=== PATIENT | female | born 1950 | race Caucasian/White ===

== ENCOUNTER → 2016-10-26 | Outpatient (CLI) | payer MEDICARE, MEDICAID ==
[~2016-10-26] MED LIST: ASPIRIN E.C. 8181 MG PO; CARAFATE 1GM1 G PO; COLACE 100100 MG/CAP PO; DEPAKOTE 250MG250 MG PO; DEPAKOTE500 MG PO; IMODIUM A-D2 MG PO; K-DUR20 MEQ PO; KLONOPIN 1MG1 MG PO; METAMUCIL3.4 GM/DOS PO; MIRALAX PA17 GM/Dose PO; NORCO 325 MG-7.1 TAB PO; NORVASC 5MG5 MG/TAB PO; PRIL40 PO; PROBIOTIC GOLD1 EACH PO; REMERON 15M15 MG/TA1 PO; REQUIP 1MG T1 MG/TAB PO; RESTORIL30 MG PO; SEROQUEL 200MG200 MG PO; SINEMET CR1 UDTAB.S1 PO; ZOFRAN 4MG T4 MG/TAB PO; ZOLOFT 100MG100 MG PO
[2016-10-26 16:36] LABS: PH 6 (5-8); SQUAMOUS EPITHELIAL 0-2 /hpf; URINE APPEARANCE Clear; URINE BACTERIA Rare /hpf; URINE BILIRUBIN Negative (NEGATIVE); URINE BLOOD 1+ (NEGATIVE); URINE COLOR Yellow; URINE GLUCOSE Negative (NEGATIVE); URINE KETONE Negative (NEGATIVE); URINE RBC 0-2 /hpf; URINE UROBILINOGEN Negative (NEGATIVE)
== END ==
LOC: ZCOL.LAB 14:47
DX: Z87.440 Personal history of urinary (tract) infections (principal)

== ENCOUNTER → 2016-11-30 | Outpatient (CLI) | payer MEDICARE, MEDICAID ==
[2016-11-30 13:30] LABS: TOTAL IRON BINDING CAPACITY 346 ug/dL (265-497)
[2016-11-30 13:56] LABS: FERRITIN 21 ng/mL (11-264)
== END ==
LOC: ZCOL.LAB 12:15
PROVIDERS: Internal Medicine
DX: R79.89 Other specified abnormal findings of blood chemistry (principal); Z02.89 Encounter for other administrative examinations

== ENCOUNTER → 2016-12-03 | Outpatient (CLI) | payer MEDICARE, MEDICAID ==
[2016-12-03 13:24] LABS: BASO # 0.1 (0.0-0.2); BASO % 0.7 % (0.0-2.0); EOS # 0.1 (0.0-0.7); EOS % 1.5 % (0-4.0); GRAN # 4.4 (1.4-6.5); HEMATOCRIT 37.6 % (37.0-47.0); LYMPH # 1.7 (1.2-3.4); LYMPH % 25.4 % (20.0-51.0); MEAN CELL VOLUME 86 fl (80.0-100.0); MEAN CORPUSCULAR HEMOGLOBIN 30 pg (27.0-31.0); MEAN CORPUSCULAR HGB CONC 35 g/dl (33.0-37.0); MEAN PLATELET VOLUME 10.5 fl (7.4-10.4); MONO # 0.6 (0.1-0.6); MONO % 8.3 % (1.7-9.3); PLATELET COUNT 283 K/mm3 (130-400); RED BLOOD COUNT 4.39 M/mm3 (4.10-5.30); REDCELL DISTRIBUTION WIDTH-CV 12.1 % (11.5-14.5); WHITE BLOOD COUNT 6.9 K/mm3 (4.8-10.8)
[2016-12-03 13:32] LABS: ADJUSTED CALCIUM 9.7 mg/dL (8.4-10.2); ALBUMIN 4.4 gm/dL (3.5-5.0); BILIRUBIN,TOTAL 0.7 mg/dL (0.0-1.0); CREATININE, serum 1.06 mg/dL (0.52-1.25); POTASSIUM 4.3 mmol/L (3.4-5.0)
[2016-12-03 14:02] LABS: THYROID STIMULATING HORMONE 1.38 uIU/mL (0.465-4.680)
== END ==
LOC: ZCOL.LAB 09:41
PROVIDERS: Internal Medicine
DX: I10 Essential (primary) hypertension (principal); Z02.89 Encounter for other administrative examinations

== ENCOUNTER → 2017-01-09 | Outpatient (CLI) | payer MEDICAID, MEDICARE | LOC: BHSO 10:41 | DX: F41.0 Panic disorder [episodic paroxysmal anxiety] (principal) | CPT/HCPCS: 90791-AI ==

== ENCOUNTER → 2017-01-17 | Outpatient (REF) ==
[2017-01-17 18:46] LABS: PH 6 (5-8); SQUAMOUS EPITHELIAL 0-2 /hpf; URINE APPEARANCE Clear; URINE BACTERIA None Seen /hpf; URINE BILIRUBIN Negative (NEGATIVE); URINE BLOOD Negative (NEGATIVE); URINE COLOR Straw; URINE GLUCOSE Negative (NEGATIVE); URINE KETONE Negative (NEGATIVE); URINE RBC 0-2 /hpf; URINE UROBILINOGEN Negative (NEGATIVE); URINE WBC 0-2 /hpf
== END ==
LOC: ZCOL.LAB 18:36
PROVIDERS: Internal Medicine
DX: Z01.89 Encounter for other specified special examinations (principal)

== ENCOUNTER → 2017-02-14 | Outpatient (CLI) | payer MEDICARE, MEDICAID | LOC: BHSO 10:10 | DX: F41.1 Generalized anxiety disorder (principal) ==

== ENCOUNTER → 2017-03-04 | Outpatient (CLI) | payer MEDICARE, MEDICAID ==
[2017-03-04 17:30] LABS: CALCIUM 9.2 mg/dL (8.4-10.2); CREATININE, serum 0.87 mg/dL (0.52-1.25); POTASSIUM 4.2 mmol/L (3.4-5.0)
== END ==
LOC: ZCOL.LAB 16:39
PROVIDERS: Internal Medicine
DX: I10 Essential (primary) hypertension (principal)

== ENCOUNTER → 2017-04-10 | Outpatient (CLI) | payer MEDICARE, MEDICAID ==
[2017-04-10 22:17] LABS: BASO % 0.7 % (0.0-2.0); EOS # 0.1 (0.0-0.7); EOS % 2.9 % (0-4.0); GRAN # 2.1 (1.4-6.5); GRAN % 50.7 % (42.2-75.2); HEMATOCRIT 30.7 % (37.0-47.0); HEMOGLOBIN 10.7 g/dl (12.5-16.0); LYMPH # 1.3 (1.2-3.4); LYMPH % 30.7 % (20.0-51.0); MEAN CELL VOLUME 83 fl (80.0-100.0); MEAN CORPUSCULAR HEMOGLOBIN 29 pg (27.0-31.0); MEAN CORPUSCULAR HGB CONC 35 g/dl (33.0-37.0); MEAN PLATELET VOLUME 9.6 fl (7.4-10.4); MONO # 0.6 (0.1-0.6); MONO % 14.8 % (1.7-9.3); PLATELET COUNT 257 K/mm3 (130-400); RED BLOOD COUNT 3.69 M/mm3 (4.10-5.30); REDCELL DISTRIBUTION WIDTH-CV 13.2 % (11.5-14.5); WHITE BLOOD COUNT 4.1 K/mm3 (4.8-10.8)
[2017-04-10 22:59] LABS: ADJUSTED CALCIUM 9.2 mg/dL (8.4-10.2); ALBUMIN 3.9 gm/dL (3.5-5.0); BILIRUBIN,TOTAL 0.4 mg/dL (0.0-1.0); CALCIUM 9.1 mg/dL (8.4-10.2); CREATININE, serum 0.87 mg/dL (0.52-1.25); POTASSIUM 4.7 mmol/L (3.4-5.0); TOTAL PROTEIN 6.4 gm/dL (6.4-8.2)
== END ==
LOC: ZCOL.LAB 16:40
PROVIDERS: Internal Medicine
DX: K56.69 Other intestinal obstruction (principal); R11.2 Nausea with vomiting, unspecified

== ENCOUNTER 2017-04-15 12:38 | Emergency (ER) | payer MEDICARE, MEDICAID ==
[~2017-04-15] VITALS: Ht 160 cm; Wt 48.3 kg
[2017-04-15 14:01] LABS: ADJUSTED CALCIUM 8.7 mg/dL (8.4-10.2); ALBUMIN 4.1 gm/dL (3.5-5.0); BILIRUBIN,TOTAL 0.5 mg/dL (0.0-1.0); C-REACTIVE PROTEIN 1.2 mg/dL (0.0-0.9); CALCIUM 8.8 mg/dL (8.4-10.2); CREATININE, serum 0.93 mg/dL (0.52-1.25); POTASSIUM 4.8 mmol/L (3.4-5.0); TOTAL PROTEIN 7.2 gm/dL (6.4-8.2)
[2017-04-15 14:08] LABS: BASO % 0.4 % (0.0-2.0); EOS # 0.1 (0.0-0.7); EOS % 2.2 % (0-4.0); GRAN # 3.5 (1.4-6.5); GRAN % 64.6 % (42.2-75.2); LYMPH # 1.2 (1.2-3.4); LYMPH % 21.6 % (20.0-51.0); MEAN CELL VOLUME 85 fl (80.0-100.0); MEAN CORPUSCULAR HGB CONC 34 g/dl (33.0-37.0); MEAN PLATELET VOLUME 9.5 fl (7.4-10.4); MONO # 0.6 (0.1-0.6); MONO % 10.8 % (1.7-9.3); PLATELET COUNT 251 K/mm3 (130-400); RED BLOOD COUNT 3.76 M/mm3 (4.10-5.30); REDCELL DISTRIBUTION WIDTH-CV 13.2 % (11.5-14.5); WHITE BLOOD COUNT 5.5 K/mm3 (4.8-10.8)
[2017-04-15 14:09] LABS: HEMATOCRIT 31.8 % (37.0-47.0); HEMOGLOBIN 10.8 g/dl (12.5-16.0); MEAN CORPUSCULAR HEMOGLOBIN 29 pg (27.0-31.0)
[2017-04-15] MEDS ORDERED: NORVASC 5MG5 MG/TAB PO (15:19)
[2017-04-15] MEDS ORDERED: METAMUCIL3.4 GM/DOS PO (15:22)
[2017-04-15] MEDS ORDERED: SINEMET CR1 UDTAB.S1 PO (15:24)
[2017-04-15] MEDS ORDERED: K-DUR20 MEQ PO (15:25)
[2017-04-15] MEDS ORDERED: RESTORIL30 MG PO (15:26)
[2017-04-15] MEDS ORDERED: REMERON 15M15 MG/TA1 PO (15:29)
[2017-04-15] MEDS ORDERED: CARAFATE 1GM1 G PO ×2 (15:29→15:30)
[2017-04-15] MEDS ORDERED: KLONOPIN 1MG1 MG PO (15:32)
[2017-04-15] MEDS ORDERED: ZOLOFT 100MG100 MG PO (15:33)
[2017-04-15] MEDS ORDERED: SEROQUEL 200MG200 MG PO (15:34)
[2017-04-15] MEDS ORDERED: PRIL40 PO (15:34)
[2017-04-15] MEDS ORDERED: PROBIOTIC GOLD1 EACH PO (15:37)
[2017-04-15] MEDS ORDERED: ASPIRIN E.C. 8181 MG PO (15:38)
[2017-04-15] MEDS ORDERED: COLACE 100100 MG/CAP PO (15:38)
[2017-04-15] MEDS ORDERED: REQUIP 1MG T1 MG/TAB PO (15:39)
[2017-04-15] MEDS ORDERED: DEPAKOTE500 MG PO (15:40)
[2017-04-15] MEDS ORDERED: DEPAKOTE 250MG250 MG PO (15:40)
[2017-04-15] MEDS ORDERED: IMODIUM A-D2 MG PO (15:50)
[2017-04-15] MEDS ORDERED: MIRALAX PA17 GM/Dose PO (15:51)
[2017-04-15] MEDS ORDERED: NORCO 325 MG-7.1 TAB PO (15:52)
[2017-04-15] MEDS ORDERED: ZOFRAN 4MG T4 MG/TAB PO (15:54)
[2017-04-15 15:55] VITALS: BP 101/55; PULSE 80; TEMP 98.1
== END 2017-04-15 15:46 | disposition home or self-care (01) ==
LOC: COL.ER 12:38
PROVIDERS: Family Medicine
DX: E87.1 Hypo-osmolality and hyponatremia (principal); E86.0 Dehydration; R63.0 Anorexia; I10 Essential (primary) hypertension; F20.9 Schizophrenia, unspecified; Z79.82 Long term (current) use of aspirin
CPT/HCPCS: J2405; J7030

== ENCOUNTER → 2017-04-19 | Outpatient (CLI) | payer MEDICARE, MEDICAID ==
[2017-04-19 15:21] LABS: PH 7 (5-8); SQUAMOUS EPITHELIAL 0-2 /hpf; URINE APPEARANCE Hazy; URINE BACTERIA Rare /hpf; URINE BILIRUBIN Negative (NEGATIVE); URINE BLOOD Negative (NEGATIVE); URINE COLOR Yellow; URINE GLUCOSE Negative (NEGATIVE); URINE KETONE Negative (NEGATIVE); URINE RBC 0-2 /hpf; URINE UROBILINOGEN Negative (NEGATIVE); URINE WBC >50 /hpf
== END ==
LOC: ZCOL.LAB 15:08
PROVIDERS: Internal Medicine
DX: N39.0 Urinary tract infection, site not specified (principal)

== ENCOUNTER → 2017-04-26 | Outpatient (CLI) | payer MEDICARE, MEDICAID ==
[~2017-04-26] MED LIST changes: +ACIDOPHILIS PO; +ANTI-DIARRHEAL2 MG PO; +ASPIRIN 81M81 MG/TA2 PO; +ATROVENT I0.2 MG/1 M IH; +BACTRIM DS 8001 TAB PO; +BENGAY COLD THERAP5% TOP; +CELEBREX 200MG200 MG PO; +CELEXA 20MG20 MG/TAB PO; +CRANBERRY500 M3 PO; +DEBROX OT; +DOXYCYCLINE 10100 MG PO; +FLORINEF ACETA0.1 MG PO; +Florastor PO; +HEPARIN LOCK FLU5 M1 IV; +INVANZ INJ1 G/VIAL IV; +IPRATROPIUM BROM3 M1 IH; +KLONOPIN 0.5MG0.5 MG PO; +LIQUIFILM TEARS15 ML OP; +MAALOX ADVANCE148 ML PO; +MACROBID 1100 MG/CAP PO; +MOBIC15 MG PO; +MULTI VITAMINS1 TAB PO; +NATURAL IRON65 MG; +NEURONTIN600 MG/TAB PO; +NEURONTIN800 MG/TAB PO; +NICODERM C21 MG/PATC TD; +NORCO 325 MG-51 TAB PO; +NS INT FLUSH 1010 ML IV; +NYSTATIN OR100 MU/ML PO; +PERCOCET 325 MG1 TA2 PO; +REFRESH TEARS 330 ML OP; +REMERON30 MG PO; +REQUIP 0.5MG0.5 MG PO; +SALINE 45 ML45 ML NS; +SEROQUEL 1100 MG/TAB PO; +SEROQUEL 2525 MG/TAB PO; +SEROQUEL50 MG PO; +TYLENOL 500MG500 MG PO; +VITAMIN C500 MG PO; +VITAMIN D32000 IU PO
[2017-04-26 11:58] LABS: BASO % 0.6 % (0.0-2.0); EOS # 0.1 (0.0-0.7); EOS % 1.6 % (0-4.0); GRAN # 5.1 (1.4-6.5); GRAN % 72.7 % (42.2-75.2); LYMPH # 1.1 (1.2-3.4); LYMPH % 15.6 % (20.0-51.0); MEAN CELL VOLUME 86 fl (80.0-100.0); MEAN CORPUSCULAR HGB CONC 34 g/dl (33.0-37.0); MEAN PLATELET VOLUME 9.7 fl (7.4-10.4); MONO # 0.6 (0.1-0.6); MONO % 9.2 % (1.7-9.3); PLATELET COUNT 268 K/mm3 (130-400); RED BLOOD COUNT 3.91 M/mm3 (4.10-5.30); REDCELL DISTRIBUTION WIDTH-CV 13.6 % (11.5-14.5)
[2017-04-26 12:01] LABS: HEMATOCRIT 33.5 % (37.0-47.0); HEMOGLOBIN 11.4 g/dl (12.5-16.0); MEAN CORPUSCULAR HEMOGLOBIN 29 pg (27.0-31.0)
[2017-04-26 12:24] LABS: ALBUMIN 4.1 gm/dL (3.5-5.0); BILIRUBIN,TOTAL 0.4 mg/dL (0.0-1.0); CALCIUM 9.3 mg/dL (8.4-10.2); CREATININE, serum 0.98 mg/dL (0.52-1.25); POTASSIUM 4.4 mmol/L (3.4-5.0); TOTAL PROTEIN 6.8 gm/dL (6.4-8.2)
[2017-04-26 12:54] LABS: THYROID STIMULATING HORMONE 2.09 uIU/mL (0.465-4.680)
== END ==
LOC: EDSTATUS 09:21 → ZCOL.LAB 11:43
PROVIDERS: Internal Medicine
DX: Z01.89 Encounter for other specified special examinations (principal); K21.9 Gastro-esophageal reflux disease without esophagitis

== ENCOUNTER 2017-05-17 16:11 | Emergency (ER) | payer MEDICARE, MEDICAID ==
[~2017-05-17] VITALS: Ht 157.5 cm; Wt 63.6 kg
[~2017-05-17 16:11] MED LIST changes: -ACIDOPHILIS PO; -ANTI-DIARRHEAL2 MG PO; -ASPIRIN 81M81 MG/TA2 PO; -ATROVENT I0.2 MG/1 M IH; -BACTRIM DS 8001 TAB PO; -BENGAY COLD THERAP5% TOP; -CELEBREX 200MG200 MG PO; -CELEXA 20MG20 MG/TAB PO; -CRANBERRY500 M3 PO; -DEBROX OT; -DOXYCYCLINE 10100 MG PO; -FLORINEF ACETA0.1 MG PO; -Florastor PO; -HEPARIN LOCK FLU5 M1 IV; -INVANZ INJ1 G/VIAL IV; -IPRATROPIUM BROM3 M1 IH; -KLONOPIN 0.5MG0.5 MG PO; -LIQUIFILM TEARS15 ML OP; -MAALOX ADVANCE148 ML PO; -MACROBID 1100 MG/CAP PO; -MOBIC15 MG PO; -MULTI VITAMINS1 TAB PO; -NATURAL IRON65 MG; -NEURONTIN600 MG/TAB PO; -NEURONTIN800 MG/TAB PO; -NICODERM C21 MG/PATC TD; -NORCO 325 MG-51 TAB PO; -NS INT FLUSH 1010 ML IV; -NYSTATIN OR100 MU/ML PO; -PERCOCET 325 MG1 TA2 PO; -REFRESH TEARS 330 ML OP; -REMERON30 MG PO; -REQUIP 0.5MG0.5 MG PO; -SALINE 45 ML45 ML NS; -SEROQUEL 1100 MG/TAB PO; -SEROQUEL 2525 MG/TAB PO; -SEROQUEL50 MG PO; -TYLENOL 500MG500 MG PO; -VITAMIN C500 MG PO; -VITAMIN D32000 IU PO
[2017-05-17 16:20] VITALS: TEMP 98.8
[2017-05-17] MEDS ORDERED: SEROQUEL 2525 MG/TAB PO (16:47)
[2017-05-17] MEDS ORDERED: NEURONTIN600 MG/TAB PO (16:50)
[2017-05-17] MEDS ORDERED: MULTI VITAMINS1 TAB PO (16:52)
[2017-05-17] MEDS ORDERED: FLORINEF ACETA0.1 MG PO (16:53)
[2017-05-17] MEDS ORDERED: CELEXA 20MG20 MG/TAB PO (16:54)
[2017-05-17] MEDS ORDERED: SEROQUEL 1100 MG/TAB PO (16:55)
[2017-05-17 17:20] VITALS: BP 117/65; PULSE 80
== END 2017-05-17 17:26 | disposition home or self-care (01) ==
LOC: COL.ER 16:11
DX: R04.0 Epistaxis (principal); F20.9 Schizophrenia, unspecified; Z79.82 Long term (current) use of aspirin

== ENCOUNTER → 2017-06-19 | Outpatient (CLI) | payer MEDICARE, MEDICAID ==
[~2017-06-19] MED LIST changes: +CELEXA 20MG20 MG/TAB PO; +FLORINEF ACETA0.1 MG PO; +MULTI VITAMINS1 TAB PO; +NEURONTIN600 MG/TAB PO; +SEROQUEL 1100 MG/TAB PO; +SEROQUEL 2525 MG/TAB PO
[2017-06-19 13:37] LABS: BASO # 0.1 (0.0-0.2); BASO % 1.1 % (0.0-2.0); EOS # 0.2 (0.0-0.7); EOS % 3.5 % (0-4.0); GRAN # 3.7 (1.4-6.5); GRAN % 59.4 % (42.2-75.2); LYMPH # 1.6 (1.2-3.4); LYMPH % 24.6 % (20.0-51.0); MEAN CELL VOLUME 88 fl (80.0-100.0); MEAN CORPUSCULAR HGB CONC 31 g/dl (33.0-37.0); MEAN PLATELET VOLUME 9.1 fl (7.4-10.4); MONO # 0.7 (0.1-0.6); MONO % 11.1 % (1.7-9.3); PLATELET COUNT 450 K/mm3 (130-400); RED BLOOD COUNT 3.46 M/mm3 (4.10-5.30); WHITE BLOOD COUNT 6.3 K/mm3 (4.8-10.8)
[2017-06-19 13:40] LABS: HEMATOCRIT 30.6 % (37.0-47.0); HEMOGLOBIN 9.4 g/dl (12.5-16.0); MEAN CORPUSCULAR HEMOGLOBIN 27 pg (27.0-31.0)
[2017-06-19 13:52] LABS: ADJUSTED CALCIUM 9.2 mg/dL (8.4-10.2); ALBUMIN 3.6 gm/dL (3.5-5.0); BILIRUBIN,TOTAL 0.3 mg/dL (0.0-1.0); C-REACTIVE PROTEIN 1.4 mg/dL (0.0-0.9); CALCIUM 8.9 mg/dL (8.4-10.2); CREATININE, serum 1.02 mg/dL (0.52-1.25); POTASSIUM 5.4 mmol/L (3.4-5.0); TOTAL PROTEIN 6.4 gm/dL (6.4-8.2)
== END ==
LOC: ZCOL.LAB 13:32
PROVIDERS: Internal Medicine
DX: K21.9 Gastro-esophageal reflux disease without esophagitis (principal); I10 Essential (primary) hypertension

== ENCOUNTER → 2017-08-22 | Outpatient (CLI) | payer MEDICARE, MEDICAID ==
[2017-08-22 14:09] LABS: PH 6 (5-8); SQUAMOUS EPITHELIAL 0-2 /hpf; URINE APPEARANCE Hazy; URINE BACTERIA Rare /hpf; URINE BILIRUBIN Negative (NEGATIVE); URINE BLOOD Negative (NEGATIVE); URINE COLOR Yellow; URINE GLUCOSE Negative (NEGATIVE); URINE KETONE Negative (NEGATIVE); URINE LEUKOCYTE ESTERASE 2+ (NEGATIVE); URINE NITRATE Negative (NEGATIVE); URINE PROTEIN(semi-quant) Negative (NEGATIVE); URINE RBC 0-2 /hpf; URINE UROBILINOGEN Negative (NEGATIVE)
[2017-08-22 14:18] LABS: COLLECTION METHOD CLEAN CATCH
== END ==
LOC: ZCOL.LAB 13:58
PROVIDERS: Internal Medicine
DX: N39.0 Urinary tract infection, site not specified (principal)

== ENCOUNTER → 2017-09-25 | Outpatient (CLI) | payer MEDICARE, MEDICAID ==
[2017-09-25 15:54] LABS: COLLECTION METHOD CLEAN CATCH
[2017-09-25 16:11] LABS: MUCOUS Present /lpf; PH 7 (5-8); SQUAMOUS EPITHELIAL 0-2 /hpf; URINE APPEARANCE Cloudy; URINE BACTERIA Rare /hpf; URINE BILIRUBIN Negative (NEGATIVE); URINE BLOOD Negative (NEGATIVE); URINE COLOR Yellow; URINE GLUCOSE Negative (NEGATIVE); URINE KETONE Negative (NEGATIVE); URINE LEUKOCYTE ESTERASE 3+ (NEGATIVE); URINE NITRATE Negative (NEGATIVE); URINE PROTEIN(semi-quant) Negative (NEGATIVE); URINE UROBILINOGEN Negative (NEGATIVE); URINE WBC >50 /hpf
[2017-09-25 16:31] LABS: ALBUMIN 4.6 gm/dL (3.5-5.0); BILIRUBIN,TOTAL 0.3 mg/dL (0.0-1.0); CALCIUM 9.4 mg/dL (8.4-10.2); CHOLESTEROL RISK RATIO 3.2; CREATININE, serum 0.92 mg/dL (0.52-1.25); POTASSIUM 5.4 mmol/L (3.4-5.0); TOTAL PROTEIN 7.7 gm/dL (6.4-8.2)
== END ==
LOC: ZCOL.LAB 15:22
PROVIDERS: Internal Medicine
DX: E87.1 Hypo-osmolality and hyponatremia (principal); E87.2 Acidosis; E87.6 Hypokalemia

== ENCOUNTER 2017-10-01 13:42 | Emergency (ER) | payer MEDICARE, MEDICAID ==
[~2017-10-01] VITALS: Ht 152.4 cm; Wt 62.7 kg
[2017-10-01 13:46] VITALS: TEMP 98.3
[2017-10-01] MEDS ORDERED: KLONOPIN 0.5MG0.5 MG PO (14:13)
[2017-10-01] MEDS ORDERED: SEROQUEL 1100 MG/TAB PO (14:14)
[2017-10-01] MEDS ORDERED: SEROQUEL 2525 MG/TAB PO (14:16)
[2017-10-01] MEDS ORDERED: MOBIC15 MG PO (14:17)
[2017-10-01] MEDS ORDERED: NEURONTIN800 MG/TAB PO (14:25)
[2017-10-01 14:42] LABS: COLLECTION METHOD CLEAN CATCH
[2017-10-01 14:57] LABS: MUCOUS Present /lpf; PH 7 (5-8); SQUAMOUS EPITHELIAL 0-2 /hpf; URINE APPEARANCE Cloudy; URINE BACTERIA Rare /hpf; URINE BILIRUBIN Negative (NEGATIVE); URINE BLOOD 1+ (NEGATIVE); URINE COLOR Yellow; URINE GLUCOSE Negative (NEGATIVE); URINE KETONE Negative (NEGATIVE); URINE LEUKOCYTE ESTERASE 3+ (NEGATIVE); URINE NITRATE Negative (NEGATIVE); URINE PROTEIN(semi-quant) Negative (NEGATIVE); URINE UROBILINOGEN Negative (NEGATIVE)
[2017-10-01 15:01] LABS: MEAN CELL VOLUME 74 fl (80.0-100.0); MEAN CORPUSCULAR HGB CONC 32 g/dl (33.0-37.0); MEAN PLATELET VOLUME 8.5 fl (7.4-10.4); PLATELET COUNT 303 K/mm3 (130-400); RED BLOOD COUNT 4.73 M/mm3 (4.10-5.30); REDCELL DISTRIBUTION WIDTH-CV 17.9 % (11.5-14.5)
[2017-10-01 15:08] LABS: ALBUMIN 4.7 gm/dL (3.5-5.0); BILIRUBIN,TOTAL 0.3 mg/dL (0.0-1.0); C-REACTIVE PROTEIN 1.1 mg/dL (0.0-0.9); CALCIUM 9.2 mg/dL (8.4-10.2); POTASSIUM 4.4 mmol/L (3.4-5.0); TOTAL PROTEIN 7.9 gm/dL (6.4-8.2)
[2017-10-01 15:17] LABS: HEMATOCRIT 34.8 % (37.0-47.0); HEMOGLOBIN 11.2 g/dl (12.5-16.0); MEAN CORPUSCULAR HEMOGLOBIN 24 pg (27.0-31.0)
[2017-10-01 15:53] LABS: BAND 17 % (0-10); EOSINOPHIL 1 % (0-4); LYMPHOCYTE 45 % (20.0-51.0); NEUTROPHILS 25 % (42.0-75.2); PLATELET ESTIMATE NORMAL (NORMAL)
[2017-10-01 15:54] LABS: ANISOCYTOSIS 1+; MICROCYTOSIS 1+
[2017-10-01 15:55] LABS: HYPOCHROMIA 1+
[2017-10-01 16:20] VITALS: BP 138/78; PULSE 74
[2017-10-01] MEDS ORDERED: MACROBID 1100 MG/CAP PO (16:20)
== END 2017-10-01 16:30 | disposition home or self-care (01) ==
LOC: COL.ER 13:42
PROVIDERS: Emergency Medicine
DX: N39.0 Urinary tract infection, site not specified (principal); F41.0 Panic disorder [episodic paroxysmal anxiety]; Z90.49 Acquired absence of other specified parts of digestive tract; Z79.82 Long term (current) use of aspirin
CPT/HCPCS: J0696; J2060; J2405; J7030; Q9967

== ENCOUNTER → 2017-10-22 | Outpatient (REF) ==
[~2017-10-22] MED LIST changes: +ANTI-DIARRHEAL2 MG PO; +BENGAY COLD THERAP5% TOP; +DEBROX OT; +DOXYCYCLINE 10100 MG PO; +Florastor PO; +HEPARIN LOCK FLU5 M1 IV; +INVANZ INJ1 G/VIAL IV; +IPRATROPIUM BROM3 M1 IH; +KLONOPIN 0.5MG0.5 MG PO; +LIQUIFILM TEARS15 ML OP; +MAALOX ADVANCE148 ML PO; +MACROBID 1100 MG/CAP PO; +MOBIC15 MG PO; +NEURONTIN800 MG/TAB PO; +NICODERM C21 MG/PATC TD; +NORCO 325 MG-51 TAB PO; +NS INT FLUSH 1010 ML IV; +NYSTATIN OR100 MU/ML PO; +SALINE 45 ML45 ML NS; +TYLENOL 500MG500 MG PO
[2017-10-22 08:24] LABS: BASO # 0.1 (0.0-0.2); BASO % 0.7 % (0.0-2.0); EOS # 0.4 (0.0-0.7); EOS % 4.7 % (0-4.0); GRAN # 5.5 (1.4-6.5); GRAN % 62.1 % (42.2-75.2); LYMPH % 22.7 % (20.0-51.0); MEAN CELL VOLUME 78 fl (80.0-100.0); MEAN CORPUSCULAR HGB CONC 32 g/dl (33.0-37.0); MEAN PLATELET VOLUME 8.8 fl (7.4-10.4); MONO # 0.8 (0.1-0.6); MONO % 9.2 % (1.7-9.3); PLATELET COUNT 409 K/mm3 (130-400); RED BLOOD COUNT 3.69 M/mm3 (4.10-5.30); REDCELL DISTRIBUTION WIDTH-CV 21.1 % (11.5-14.5)
[2017-10-22 08:37] LABS: ALANINE AMINOTRANSFERASE 36 U/L (9-52); ALBUMIN 2.8 gm/dL (3.5-5.0); ALKALINE PHOSPHATASE 96 U/L (50-136); ANION GAP 7 mmol/L (7-16); AST,SGOT 32 U/L (15-37); BILIRUBIN,TOTAL < 0.1 mg/dL (0.0-1.0); BLOOD UREA NITROGEN 12 mg/dL (7-17); CALCIUM 6.1 mg/dL (8.4-10.2); CARBON DIOXIDE 27 mmol/L (22-30); CHLORIDE 104 mmol/L (98-107); CREATININE, serum 0.84 mg/dL (0.52-1.25); GLUCOSE 103 mg/dL (74-106); POTASSIUM 5.7 mmol/L (3.4-5.0); SODIUM 137 mmol/L (137-145); TOTAL PROTEIN 5.8 gm/dL (6.4-8.2)
[2017-10-22 09:01] LABS: HEMATOCRIT 28.6 % (37.0-47.0); HEMOGLOBIN 9.2 g/dl (12.5-16.0); MEAN CORPUSCULAR HEMOGLOBIN 25 pg (27.0-31.0)
== END ==
LOC: ZCOL.LAB 08:18
PROVIDERS: Internal Medicine
DX: J12.9 Viral pneumonia, unspecified (principal); E87.1 Hypo-osmolality and hyponatremia

== ENCOUNTER → 2017-11-08 | Outpatient (CLI) | payer MEDICARE, MEDICAID | LOC: ZLAB.STJ 11:22 → ZCOL.LAB 11:22 | DX: F41.9 Anxiety disorder, unspecified (principal) ==

== ENCOUNTER → 2017-12-12 | Outpatient (CLI) | payer MEDICARE, MEDICAID ==
[2017-12-12 19:14] LABS: COLLECTION METHOD CLEAN CATCH
[2017-12-12 19:24] LABS: MUCOUS Present /lpf; PH 6 (5-8); SQUAMOUS EPITHELIAL 0-2 /hpf; URINE APPEARANCE Hazy; URINE BACTERIA Rare /hpf; URINE BILIRUBIN Negative (NEGATIVE); URINE BLOOD Negative (NEGATIVE); URINE COLOR Yellow; URINE GLUCOSE Negative (NEGATIVE); URINE KETONE Negative (NEGATIVE); URINE LEUKOCYTE ESTERASE 3+ (NEGATIVE); URINE NITRATE Positive (NEGATIVE); URINE PROTEIN(semi-quant) Negative (NEGATIVE); URINE RBC 0-2 /hpf; URINE UROBILINOGEN Negative (NEGATIVE); URINE WBC >50 /hpf
== END ==
LOC: ZCOL.LAB 19:09
PROVIDERS: Internal Medicine
DX: N39.0 Urinary tract infection, site not specified (principal)

== ENCOUNTER → 2017-12-25 | Outpatient (CLI) | payer MEDICARE, MEDICAID ==
[2017-12-25 19:31] LABS: CALCIUM 9.1 mg/dL (8.4-10.2); CREATININE, serum 0.95 mg/dL (0.52-1.25); POTASSIUM 5.1 mmol/L (3.4-5.0)
== END ==
LOC: ZCOL.LAB 18:32
PROVIDERS: Internal Medicine
DX: E87.6 Hypokalemia (principal)

== ENCOUNTER → 2018-01-28 | Outpatient (CLI) | payer MEDICARE, MEDICAID ==
[2018-01-28 17:05] LABS: CALCIUM 9.5 mg/dL (8.4-10.2); CREATININE, serum 1.03 mg/dL (0.52-1.25); POTASSIUM 5.3 mmol/L (3.4-5.0)
== END ==
LOC: ZCOL.LAB 16:32
PROVIDERS: Internal Medicine
DX: I10 Essential (primary) hypertension (principal)

== ENCOUNTER → 2018-01-30 | Outpatient (REF) ==
[2018-01-30 15:01] LABS: COLLECTION METHOD CLEAN CATCH
[2018-01-30 15:18] LABS: BUDDING YEAST Present /hpf; MUCOUS Present /lpf; PH 6 (5-8); SQUAMOUS EPITHELIAL None Seen /hpf; URINE APPEARANCE Cloudy; URINE BACTERIA Rare /hpf; URINE BILIRUBIN Negative (NEGATIVE); URINE BLOOD Negative (NEGATIVE); URINE COLOR Yellow; URINE GLUCOSE Negative (NEGATIVE); URINE KETONE Negative (NEGATIVE); URINE LEUKOCYTE ESTERASE 3+ (NEGATIVE); URINE NITRATE Negative (NEGATIVE); URINE PROTEIN(semi-quant) Negative (NEGATIVE); URINE UROBILINOGEN Negative (NEGATIVE)
== END ==
LOC: ZLAB.STJ 14:59
PROVIDERS: Internal Medicine
DX: N39.0 Urinary tract infection, site not specified (principal)

== ENCOUNTER → 2018-02-24 | Outpatient (REF) ==
[2018-02-24 14:53] LABS: COLLECTION METHOD CLEAN CATCH
[2018-02-24 15:18] LABS: PH 6 (5-8); SQUAMOUS EPITHELIAL 0-2 /hpf; URINE APPEARANCE Cloudy; URINE BACTERIA Rare /hpf; URINE BILIRUBIN Negative (NEGATIVE); URINE BLOOD Negative (NEGATIVE); URINE COLOR Amber; URINE GLUCOSE Negative (NEGATIVE); URINE KETONE Trace (NEGATIVE); URINE LEUKOCYTE ESTERASE 3+ (NEGATIVE); URINE NITRATE Positive (NEGATIVE); URINE PROTEIN(semi-quant) 1+ (NEGATIVE); URINE RBC 0-2 /hpf; URINE UROBILINOGEN Negative (NEGATIVE); URINE WBC >50 /hpf
== END ==
LOC: ZCOL.LAB 14:51
PROVIDERS: Internal Medicine
DX: N39.0 Urinary tract infection, site not specified (principal)

== ENCOUNTER → 2018-04-16 | Outpatient (REF) ==
[2018-04-16 14:14] LABS: BASO # 0.1 (0.0-0.2); BASO % 0.8 % (0.0-2.0); EOS # 0.1 (0.0-0.7); EOS % 1.7 % (0-4.0); GRAN # 5.3 (1.4-6.5); GRAN % 70.3 % (42.2-75.2); HEMOGLOBIN 13.4 g/dl (12.5-16.0); LYMPH # 1.5 (1.2-3.4); LYMPH % 19.2 % (20.0-51.0); MEAN CELL VOLUME 85 fl (80.0-100.0); MEAN CORPUSCULAR HEMOGLOBIN 28 pg (27.0-31.0); MEAN CORPUSCULAR HGB CONC 34 g/dl (33.0-37.0); MEAN PLATELET VOLUME 9.5 fl (7.4-10.4); MONO # 0.6 (0.1-0.6); MONO % 7.7 % (1.7-9.3); PLATELET COUNT 335 K/mm3 (130-400); RED BLOOD COUNT 4.73 M/mm3 (4.10-5.30); REDCELL DISTRIBUTION WIDTH-CV 13.8 % (11.5-14.5)
[2018-04-16 14:33] LABS: ALBUMIN 4.4 gm/dL (3.5-5.0); BILIRUBIN,TOTAL 0.3 mg/dL (0.0-1.0); CHOLESTEROL RISK RATIO 3.7; CREATININE, serum 0.89 mg/dL (0.52-1.25); POTASSIUM 5.3 mmol/L (3.4-5.0); TOTAL PROTEIN 7.6 gm/dL (6.4-8.2)
[2018-04-16 14:58] LABS: THYROID STIMULATING HORMONE 1.57 uIU/mL (0.465-4.680)
== END ==
LOC: ZCOL.LAB 13:40
PROVIDERS: Internal Medicine
DX: F20.1 Disorganized schizophrenia (principal); E87.6 Hypokalemia; N39.0 Urinary tract infection, site not specified

== ENCOUNTER 2018-04-20 23:30 | Emergency (ER) | payer MEDICARE, MEDICAID ==
[~2018-04-20 23:30] MED LIST changes: -ACIDOPHILIS PO; -ASPIRIN 81M81 MG/TA2 PO; -ATROVENT I0.2 MG/1 M IH; -BACTRIM DS 8001 TAB PO; -CELEBREX 200MG200 MG PO; -CRANBERRY500 M3 PO; -NATURAL IRON65 MG; -REFRESH TEARS 330 ML OP; -REMERON30 MG PO; -REQUIP 0.5MG0.5 MG PO; -SEROQUEL50 MG PO; -VITAMIN C500 MG PO; -VITAMIN D32000 IU PO
[2018-04-20 23:36] VITALS: TEMP 98.1
[2018-04-21 00:33] LABS: COLLECTION METHOD CLEAN CATCH
[2018-04-21 01:06] LABS: PH 7 (5-8); SQUAMOUS EPITHELIAL None Seen /hpf; URINE APPEARANCE Cloudy; URINE BACTERIA Many /hpf; URINE BILIRUBIN Negative (NEGATIVE); URINE BLOOD 3+ (NEGATIVE); URINE COLOR Amber; URINE GLUCOSE Negative (NEGATIVE); URINE KETONE Negative (NEGATIVE); URINE LEUKOCYTE ESTERASE Negative (NEGATIVE); URINE NITRATE Negative (NEGATIVE); URINE PROTEIN(semi-quant) 2+ (NEGATIVE); URINE UROBILINOGEN Negative (NEGATIVE)
[2018-04-21] MEDS ORDERED: MULTI VITAMINS1 TAB PO (01:23)
[2018-04-21] MEDS ORDERED: SEROQUEL50 MG PO (01:23)
[2018-04-21] MEDS ORDERED: REMERON30 MG PO (01:23)
[2018-04-21] MEDS ORDERED: NORCO 325 MG-51 TAB PO (01:23)
[2018-04-21] MEDS ORDERED: ACIDOPHILIS PO (01:24)
[2018-04-21] MEDS ORDERED: MIRALAX PA17 GM/Dose PO (01:24)
[2018-04-21] MEDS ORDERED: ZOFRAN 4MG T4 MG/TAB PO (01:24)
[2018-04-21] MEDS ORDERED: CELEXA 20MG20 MG/TAB PO (01:25)
[2018-04-21] MEDS ORDERED: ASPIRIN 81M81 MG/TA2 PO (01:25)
[2018-04-21] MEDS ORDERED: NEURONTIN800 MG/TAB PO (01:25)
[2018-04-21] MEDS ORDERED: VITAMIN C500 MG PO (01:25)
[2018-04-21] MEDS ORDERED: ATROVENT I0.2 MG/1 M IH (01:26)
[2018-04-21] MEDS ORDERED: NATURAL IRON65 MG (01:26)
[2018-04-21] MEDS ORDERED: PRIL40 PO (01:27)
[2018-04-21] MEDS ORDERED: DEBROX OT (01:28)
[2018-04-21] MEDS ORDERED: REFRESH TEARS 330 ML OP (01:37)
[2018-04-21] MEDS ORDERED: REQUIP 0.5MG0.5 MG PO (01:42)
[2018-04-21] MEDS ORDERED: CELEBREX 200MG200 MG PO (01:42)
[2018-04-21] MEDS ORDERED: BACTRIM DS 8001 TAB PO (01:43)
[2018-04-21] MEDS ORDERED: VITAMIN D32000 IU PO (01:43)
[2018-04-21] MEDS ORDERED: CRANBERRY500 M3 PO (01:43)
[2018-04-21 01:52] VITALS: BP 155/81; PULSE 73
== END 2018-04-21 01:54 | disposition home or self-care (01) ==
LOC: COL.ER 23:30
PROVIDERS: Nurse Practitioner Primary Care
DX: R30.0 Dysuria (principal); N30.81 Other cystitis with hematuria; I10 Essential (primary) hypertension; F17.210 Nicotine dependence, cigarettes, uncomplicated; Z79.899 Other long term (current) drug therapy; Z79.82 Long term (current) use of aspirin; Z90.710 Acquired absence of both cervix and uterus

== ENCOUNTER → 2018-04-20 | Outpatient (CLI) | payer MEDICARE, MEDICAID ==
[~2018-04-20] MED LIST changes: +ACIDOPHILIS PO; +ASPIRIN 81M81 MG/TA2 PO; +ATROVENT I0.2 MG/1 M IH; +BACTRIM DS 8001 TAB PO; +CELEBREX 200MG200 MG PO; +CRANBERRY500 M3 PO; +NATURAL IRON65 MG; +REFRESH TEARS 330 ML OP; +REMERON30 MG PO; +REQUIP 0.5MG0.5 MG PO; +SEROQUEL50 MG PO; +VITAMIN C500 MG PO; +VITAMIN D32000 IU PO
[2018-04-20 20:51] LABS: HEMOGLOBIN 12.1 g/dl (12.5-16.0)
[2018-04-20 21:23] LABS: HEMATOCRIT 34.6 % (37.0-47.0)
== END ==
LOC: ZCOL.LAB 20:27
PROVIDERS: Internal Medicine
DX: K31.84 Gastroparesis (principal)

== ENCOUNTER → 2018-04-25 | Outpatient (CLI) | payer MEDICARE, MEDICAID ==
[~2018-04-25] MED LIST changes: +ACIDOPHILIS PO; +ASPIRIN 81M81 MG/TA2 PO; +ATROVENT I0.2 MG/1 M IH; +BACTRIM DS 8001 TAB PO; +CELEBREX 200MG200 MG PO; +CRANBERRY500 M3 PO; +NATURAL IRON65 MG; +REFRESH TEARS 330 ML OP; +REMERON30 MG PO; +REQUIP 0.5MG0.5 MG PO; +SEROQUEL50 MG PO; +VITAMIN C500 MG PO; +VITAMIN D32000 IU PO
[2018-04-25 13:10] LABS: COLLECTION METHOD CLEAN CATCH
[2018-04-25 13:20] LABS: PH 6 (5-8); SQUAMOUS EPITHELIAL 0-2 /hpf; URINE APPEARANCE Clear; URINE BACTERIA Rare /hpf; URINE BILIRUBIN Negative (NEGATIVE); URINE BLOOD Negative (NEGATIVE); URINE COLOR Yellow; URINE GLUCOSE Negative (NEGATIVE); URINE KETONE Negative (NEGATIVE); URINE LEUKOCYTE ESTERASE Negative (NEGATIVE); URINE NITRATE Negative (NEGATIVE); URINE PROTEIN(semi-quant) Negative (NEGATIVE); URINE RBC None Seen /hpf; URINE UROBILINOGEN Negative (NEGATIVE); URINE WBC 0-2 /hpf
== END ==
LOC: ZCOL.LAB 13:09
PROVIDERS: Internal Medicine
DX: N39.0 Urinary tract infection, site not specified (principal)

== ENCOUNTER → 2018-05-01 | Outpatient (CLI) | payer MEDICARE, MEDICAID | LOC: COL.RAD 10:30 | DX: N30.21 Other chronic cystitis with hematuria (principal) ==

== ENCOUNTER → 2018-06-17 | Outpatient (REF) ==
[2018-06-17 17:24] LABS: CALCIUM 8.9 mg/dL (8.4-10.2); CREATININE, serum 0.93 mg/dL (0.52-1.25); POTASSIUM 5.1 mmol/L (3.4-5.0)
== END ==
LOC: ZCOL.LAB 17:00
PROVIDERS: Internal Medicine
DX: E89.6 Postprocedural adrenocortical (-medullary) hypofunction (principal)

== ENCOUNTER 2018-07-11 14:24 | Emergency (ER) | payer MEDICARE, MEDICAID ==
[~2018-07-11] VITALS: Ht 160 cm; Wt 67.7 kg
[2018-07-11 14:30] VITALS: BP 171/90; TEMP 100.1
[2018-07-11] MEDS ORDERED: PERCOCET 325 MG1 TA2 PO (16:43)
[2018-07-11 17:02] VITALS: PULSE 72
== END 2018-07-11 17:02 | disposition home or self-care (01) ==
LOC: COL.ER 14:24
DX: S32.9XXA Fracture of unspecified parts of lumbosacral spine and pelvis, initial encounter for closed fracture (principal); M54.41 Lumbago with sciatica, right side; J44.9 Chronic obstructive pulmonary disease, unspecified; M54.16 Radiculopathy, lumbar region; I10 Essential (primary) hypertension; F17.210 Nicotine dependence, cigarettes, uncomplicated; Z79.82 Long term (current) use of aspirin; X50.0XXA Overexertion from strenuous movement or load, initial encounter

== ENCOUNTER → 2018-07-22 | Outpatient (CLI) | payer MEDICARE, MEDICAID ==
[~2018-07-22] MED LIST changes: +PERCOCET 325 MG1 TA2 PO
== END ==
LOC: ZCOL.LAB 13:22
DX: E55.9 Vitamin D deficiency, unspecified (principal)

== ENCOUNTER → 2018-08-05 | Outpatient (CLI) | payer MEDICARE, MEDICAID ==
[2018-08-05 19:15] LABS: COLLECTION METHOD CLEAN CATCH
[2018-08-05 19:28] LABS: PH 6 (5-8); SQUAMOUS EPITHELIAL 0-2 /hpf; URINE APPEARANCE Cloudy; URINE BACTERIA Rare /hpf; URINE BILIRUBIN Negative (NEGATIVE); URINE BLOOD Negative (NEGATIVE); URINE COLOR Yellow; URINE GLUCOSE Negative (NEGATIVE); URINE KETONE Negative (NEGATIVE); URINE LEUKOCYTE ESTERASE 3+ (NEGATIVE); URINE NITRATE Negative (NEGATIVE); URINE PROTEIN(semi-quant) Negative (NEGATIVE); URINE UROBILINOGEN Negative (NEGATIVE); URINE WBC >50 /hpf
== END ==
LOC: ZCOL.LAB 17:48
PROVIDERS: Internal Medicine
DX: N39.0 Urinary tract infection, site not specified (principal)

== ENCOUNTER → 2018-09-04 | Outpatient (CLI) | payer MEDICARE, MEDICAID ==
[2018-09-04 15:00] LABS: CREATININE, serum 1.04 mg/dL (0.52-1.25); POTASSIUM 4.6 mmol/L (3.4-5.0)
== END ==
LOC: ZCOL.LAB 12:07
PROVIDERS: Internal Medicine
DX: I10 Essential (primary) hypertension (principal); Z79.82 Long term (current) use of aspirin

== ENCOUNTER → 2018-09-11 | Outpatient (CLI) | payer MEDICARE, MEDICAID ==
[2018-09-11 15:51] LABS: COLLECTION METHOD CLEAN CATCH
[2018-09-11 16:07] LABS: PH 5 (5-8); SQUAMOUS EPITHELIAL None Seen /hpf; URINE APPEARANCE Turbid; URINE BACTERIA None Seen /hpf; URINE BILIRUBIN Negative (NEGATIVE); URINE BLOOD Negative (NEGATIVE); URINE COLOR Amber; URINE GLUCOSE Negative (NEGATIVE); URINE KETONE Trace (NEGATIVE); URINE LEUKOCYTE ESTERASE 3+ (NEGATIVE); URINE NITRATE Negative (NEGATIVE); URINE PROTEIN(semi-quant) 2+ (NEGATIVE); URINE RBC 20-50 /hpf; URINE UROBILINOGEN Negative (NEGATIVE); URINE WBC >50 /hpf
== END ==
LOC: ZCOL.LAB 15:28
PROVIDERS: Internal Medicine
DX: N39.0 Urinary tract infection, site not specified (principal)

== ENCOUNTER → 2018-10-06 | Outpatient (CLI) | payer MEDICARE, MEDICAID ==
[2018-10-06 17:57] LABS: CALCIUM 8.9 mg/dL (8.4-10.2); CREATININE, serum 1.08 mg/dL (0.52-1.25); POTASSIUM 5.2 mmol/L (3.4-5.0)
== END ==
LOC: ZCOL.LAB 17:34
PROVIDERS: Internal Medicine
DX: E87.6 Hypokalemia (principal); D51.9 Vitamin B12 deficiency anemia, unspecified; Z79.82 Long term (current) use of aspirin

== ENCOUNTER → 2018-10-25 | Outpatient (CLI) | payer MEDICARE, MEDICAID ==
[2018-10-25 16:37] LABS: COLLECTION METHOD CLEAN CATCH
[2018-10-25 17:01] LABS: MUCOUS Present /lpf; PH 5 (5-8); SQUAMOUS EPITHELIAL None Seen /hpf; URINE APPEARANCE Cloudy; URINE BACTERIA Rare /hpf; URINE BILIRUBIN Negative (NEGATIVE); URINE BLOOD Negative (NEGATIVE); URINE COLOR Yellow; URINE GLUCOSE Negative (NEGATIVE); URINE KETONE Negative (NEGATIVE); URINE LEUKOCYTE ESTERASE 3+ (NEGATIVE); URINE NITRATE Negative (NEGATIVE); URINE PROTEIN(semi-quant) Negative (NEGATIVE); URINE RBC 20-50 /hpf; URINE UROBILINOGEN Negative (NEGATIVE); URINE WBC >50 /hpf
== END ==
LOC: ZCOL.LAB 16:36
PROVIDERS: Internal Medicine
DX: N39.0 Urinary tract infection, site not specified (principal)

== ENCOUNTER → 2018-10-31 | Outpatient (CLI) | payer MEDICARE, MEDICAID | LOC: ZCOL.LAB 13:31 | DX: I10 Essential (primary) hypertension (principal) ==

== ENCOUNTER → 2018-11-11 | Outpatient (CLI) | payer MEDICARE, MEDICAID | LOC: ZCOL.LAB 17:25 | DX: I10 Essential (primary) hypertension (principal) ==

== ENCOUNTER → 2018-12-31 | Outpatient (REF) ==
[2018-12-31 08:18] LABS: COLLECTION METHOD CLEAN CATCH
[2018-12-31 08:30] LABS: PH 5 (5-8); SQUAMOUS EPITHELIAL 0-2 /hpf; URINE APPEARANCE Cloudy; URINE BACTERIA Rare /hpf; URINE BILIRUBIN Negative (NEGATIVE); URINE BLOOD Negative (NEGATIVE); URINE COLOR Yellow; URINE GLUCOSE Negative (NEGATIVE); URINE KETONE Negative (NEGATIVE); URINE LEUKOCYTE ESTERASE 3+ (NEGATIVE); URINE NITRATE Positive (NEGATIVE); URINE PROTEIN(semi-quant) Negative (NEGATIVE); URINE UROBILINOGEN Negative (NEGATIVE); URINE WBC >50 /hpf
[2018-12-31 09:13] LABS: BASO # 0.1 (0.0-0.2); BASO % 1.1 % (0.0-2.0); EOS # 0.3 (0.0-0.7); EOS % 3.4 % (0-4.0); GRAN # 4.4 (1.4-6.5); GRAN % 59.7 % (42.2-75.2); HEMATOCRIT 39.1 % (37.0-47.0); LYMPH # 1.9 (1.2-3.4); LYMPH % 25.2 % (20.0-51.0); MEAN CELL VOLUME 88 fl (80.0-100.0); MEAN CORPUSCULAR HEMOGLOBIN 29 pg (27.0-31.0); MEAN CORPUSCULAR HGB CONC 33 g/dl (33.0-37.0); MEAN PLATELET VOLUME 9.6 fl (7.4-10.4); MONO # 0.8 (0.1-0.6); MONO % 10.3 % (1.7-9.3); PLATELET COUNT 353 K/mm3 (130-400); RED BLOOD COUNT 4.46 M/mm3 (4.10-5.30); REDCELL DISTRIBUTION WIDTH-CV 12.9 % (11.5-14.5)
== END ==
LOC: ZCOL.LAB 08:11
PROVIDERS: Internal Medicine
DX: I10 Essential (primary) hypertension (principal); M62.81 Muscle weakness (generalized); N39.0 Urinary tract infection, site not specified

== ENCOUNTER → 2019-01-21 | Outpatient (CLI) | payer MEDICARE, MEDICAID | LOC: ZCOL.LAB 12:35 | DX: S32.441D Displaced fracture of posterior column [ilioischial] of right acetabulum, subsequent encounter for fracture with routine healing (principal) ==

== ENCOUNTER → 2019-03-05 | Outpatient (CLI) | payer MEDICARE, MEDICAID | LOC: ZCOL.LAB 12:33 | DX: E11.40 Type 2 diabetes mellitus with diabetic neuropathy, unspecified (principal); K31.84 Gastroparesis ==

== ENCOUNTER → 2019-03-13 | Outpatient (CLI) | payer MEDICARE, MEDICAID ==
[2019-03-13 17:24] LABS: COLLECTION METHOD CLEAN CATCH
[2019-03-13 18:04] LABS: MUCOUS Present /lpf; PH 5 (5-8); SQUAMOUS EPITHELIAL 0-2 /hpf; URINE APPEARANCE Cloudy; URINE BACTERIA None Seen /hpf; URINE BILIRUBIN Negative (NEGATIVE); URINE BLOOD Negative (NEGATIVE); URINE COLOR Amber; URINE GLUCOSE Negative (NEGATIVE); URINE KETONE Negative (NEGATIVE); URINE LEUKOCYTE ESTERASE 3+ (NEGATIVE); URINE NITRATE Positive (NEGATIVE); URINE PROTEIN(semi-quant) 1+ (NEGATIVE); URINE UROBILINOGEN Negative (NEGATIVE)
== END ==
LOC: ZCOL.LAB 15:35
PROVIDERS: Nurse Practitioner
DX: N39.0 Urinary tract infection, site not specified (principal)

== ENCOUNTER → 2019-03-17 | Outpatient (CLI) | payer MEDICARE, MEDICAID | LOC: ZCOL.LAB 10:22 | DX: N39.0 Urinary tract infection, site not specified (principal) ==

== ENCOUNTER → 2019-06-01 | Outpatient (CLI) | payer MEDICARE, MEDICAID ==
[2019-06-01 18:30] LABS: COLLECTION METHOD CLEAN CATCH
[2019-06-01 18:47] LABS: MUCOUS Present /lpf; PH 7 (5-8); SQUAMOUS EPITHELIAL 0-2 /hpf; URINE APPEARANCE Hazy; URINE BACTERIA Rare /hpf; URINE BILIRUBIN Negative (NEGATIVE); URINE BLOOD Negative (NEGATIVE); URINE COLOR Yellow; URINE GLUCOSE Negative (NEGATIVE); URINE KETONE Negative (NEGATIVE); URINE LEUKOCYTE ESTERASE 2+ (NEGATIVE); URINE NITRATE Negative (NEGATIVE); URINE PROTEIN(semi-quant) Negative (NEGATIVE); URINE UROBILINOGEN Negative (NEGATIVE)
== END ==
LOC: COL.LAB 17:46
PROVIDERS: Family Medicine
DX: N39.0 Urinary tract infection, site not specified (principal)

== ENCOUNTER → 2019-06-10 | Outpatient (CLI) | payer MEDICARE, MEDICAID ==
[2019-06-10 16:12] LABS: COLLECTION METHOD CLEAN CATCH
[2019-06-10 16:31] LABS: PH 8 (5-8); SQUAMOUS EPITHELIAL 0-2 /hpf; URINE APPEARANCE Clear; URINE BACTERIA Rare /hpf; URINE BILIRUBIN Negative (NEGATIVE); URINE BLOOD Negative (NEGATIVE); URINE COLOR Yellow; URINE GLUCOSE Negative (NEGATIVE); URINE KETONE Negative (NEGATIVE); URINE LEUKOCYTE ESTERASE Negative (NEGATIVE); URINE NITRATE Negative (NEGATIVE); URINE PROTEIN(semi-quant) Negative (NEGATIVE); URINE RBC 0-2 /hpf; URINE UROBILINOGEN Negative (NEGATIVE); URINE WBC 0-2 /hpf
== END ==
LOC: ZCOL.LAB 15:52
PROVIDERS: Family Medicine
DX: N39.0 Urinary tract infection, site not specified (principal)

== ENCOUNTER → 2019-06-29 | Outpatient (CLI) | payer MEDICARE, MEDICAID ==
[2019-06-30 01:07] LABS: COLLECTION METHOD CLEAN CATCH
[2019-06-30 01:42] LABS: MUCOUS Present /lpf; PH 6 (5-8); SQUAMOUS EPITHELIAL 0-2 /hpf; URINE APPEARANCE Hazy; URINE BACTERIA Rare /hpf; URINE BILIRUBIN Negative (NEGATIVE); URINE BLOOD Negative (NEGATIVE); URINE COLOR Yellow; URINE GLUCOSE Negative (NEGATIVE); URINE KETONE Negative (NEGATIVE); URINE LEUKOCYTE ESTERASE 2+ (NEGATIVE); URINE NITRATE Negative (NEGATIVE); URINE PROTEIN(semi-quant) Negative (NEGATIVE); URINE UROBILINOGEN Negative (NEGATIVE); URINE WBC >50 /hpf
== END ==
LOC: ZCOL.LAB 15:00
PROVIDERS: Family Medicine
DX: N39.0 Urinary tract infection, site not specified (principal)

== ENCOUNTER → 2019-08-24 | Outpatient (CLI) | payer MEDICARE, MEDICAID ==
[2019-08-24 17:52] LABS: COLLECTION METHOD CLEAN CATCH
[2019-08-24 18:19] LABS: MUCOUS Present /lpf; PH 5 (5-8); URINE APPEARANCE Cloudy; URINE BACTERIA Rare /hpf; URINE BILIRUBIN Negative (NEGATIVE); URINE BLOOD 2+ (NEGATIVE); URINE COLOR Yellow; URINE GLUCOSE Negative (NEGATIVE); URINE KETONE Negative (NEGATIVE); URINE LEUKOCYTE ESTERASE 3+ (NEGATIVE); URINE NITRATE Negative (NEGATIVE); URINE PROTEIN(semi-quant) 1+ (NEGATIVE); URINE RBC 20-50 /hpf; URINE UROBILINOGEN Negative (NEGATIVE); URINE WBC >50 /hpf
== END ==
LOC: ZCOL.LAB 17:43
PROVIDERS: Family Medicine
DX: N39.0 Urinary tract infection, site not specified (principal)

== ENCOUNTER → 2019-10-27 | Outpatient (CLI) | payer MEDICARE, MEDICAID ==
[2019-10-27 13:48] LABS: ALBUMIN 3.9 gm/dL (3.5-5.0); BILIRUBIN,TOTAL 0.3 mg/dL (0.0-1.0); CALCIUM 8.7 mg/dL (8.4-10.2); CHOLESTEROL RISK RATIO 5.5; CREATININE, serum 1.03 (0.52-1.25); POTASSIUM 4.6 mmol/L (3.4-5.0); TOTAL PROTEIN 6.8 gm/dL (6.4-8.2)
[2019-10-27 13:54] LABS: BASO # 0.1 (0.0-0.2); BASO % 1.2 % (0.0-2.0); EOS # 0.3 (0.0-0.7); EOS % 5.1 % (0-4.0); GRAN # 3.9 (1.4-6.5); HEMATOCRIT 37.7 % (37.0-47.0); LYMPH # 1.9 (1.2-3.4); LYMPH % 28.3 % (20.0-51.0); MEAN CELL VOLUME 89 fl (80.0-100.0); MEAN CORPUSCULAR HEMOGLOBIN 28 pg (27.0-31.0); MEAN CORPUSCULAR HGB CONC 32 g/dl (33.0-37.0); MEAN PLATELET VOLUME 10.7 fl (7.4-10.4); MONO # 0.5 (0.1-0.6); MONO % 7.3 % (1.7-9.3); PLATELET COUNT 280 K/mm3 (130-400); RED BLOOD COUNT 4.26 M/mm3 (4.10-5.30); REDCELL DISTRIBUTION WIDTH-CV 13.3 % (11.5-14.5)
== END ==
LOC: ZCOL.LAB 11:26
PROVIDERS: Family Medicine
DX: K31.84 Gastroparesis (principal)

== ENCOUNTER → 2020-04-27 | Outpatient (CLI) | payer MEDICARE, MEDICAID ==
[2020-04-27 12:28] LABS: ALBUMIN 4.1 gm/dL (3.5-5.0); BILIRUBIN,TOTAL 0.5 mg/dL (0.0-1.0); CALCIUM 9.1 mg/dL (8.4-10.2); CREATININE, serum 1.16 (0.52-1.25); POTASSIUM 5.2 mmol/L (3.4-5.0); TOTAL PROTEIN 7.1 gm/dL (6.4-8.2)
== END ==
LOC: ZCOL.LAB 10:58
PROVIDERS: Family Medicine
DX: M81.0 Age-related osteoporosis without current pathological fracture (principal); K31.84 Gastroparesis

== ENCOUNTER → 2021-01-24 | Outpatient (CLI) | payer MEDICARE, MEDICAID ==
[2021-01-24 15:35] LABS: BASO # 0.1 (0.0-0.2); BASO % 0.7 % (0.0-2.0); EOS # 0.3 (0.0-0.7); EOS % 3.3 % (0-4.0); GRAN # 4.8 (1.4-6.5); GRAN % 59.2 % (42.2-75.2); HEMOGLOBIN 11.7 g/dl (12.5-16.0); LYMPH # 2.3 (1.2-3.4); LYMPH % 28.3 % (20.0-51.0); MEAN CELL VOLUME 86 fl (80.0-100.0); MEAN CORPUSCULAR HEMOGLOBIN 28 pg (27.0-31.0); MEAN CORPUSCULAR HGB CONC 32 g/dl (33.0-37.0); MEAN PLATELET VOLUME 10.9 fl (7.4-10.4); MONO # 0.7 (0.1-0.6); MONO % 8.4 % (1.7-9.3); PLATELET COUNT 238 K/mm3 (130-400); RED BLOOD COUNT 4.22 M/mm3 (4.10-5.30); REDCELL DISTRIBUTION WIDTH-CV 13.1 % (11.5-14.5)
[2021-01-24 15:37] LABS: HEMATOCRIT 36.4 % (37.0-47.0)
[2021-01-24 15:48] LABS: ALBUMIN 3.9 gm/dL (3.5-5.0); BILIRUBIN,TOTAL 0.2 mg/dL (0.0-1.0); CALCIUM 9.4 mg/dL (8.4-10.2); CREATININE, serum 1.05 (0.52-1.25)
[2021-01-24 15:59] LABS: CHOLESTEROL RISK RATIO 5.9; MAGNESIUM 1.9 mg/dL (1.6-2.3)
[2021-01-24 23:20] LABS: HEPATITIS C VIRUS ANTIBODY Negative (Negative)
== END ==
LOC: ZCOL.LAB 15:16
PROVIDERS: Family Medicine
DX: Z00.00 Encounter for general adult medical examination without abnormal findings (principal); I10 Essential (primary) hypertension; N81.0 Urethrocele

== ENCOUNTER → 2021-06-02 | Outpatient (CLI) | payer MEDICARE, MEDICAID ==
[2021-06-02 09:28] LABS: COLLECTION METHOD CATHETER
[2021-06-02 09:55] LABS: MUCOUS Present /lpf; PH 5 (5-8); URINE APPEARANCE Hazy; URINE BACTERIA Occasional /hpf; URINE BILIRUBIN Negative (NEGATIVE); URINE BLOOD 2+ (NEGATIVE); URINE COLOR Yellow; URINE GLUCOSE Negative (NEGATIVE); URINE KETONE Negative (NEGATIVE); URINE LEUKOCYTE ESTERASE 1+ (NEGATIVE); URINE NITRATE Positive (NEGATIVE); URINE PROTEIN(semi-quant) Negative (NEGATIVE); URINE UROBILINOGEN Negative (NEGATIVE)
== END ==
LOC: ZCOL.LAB 09:08
PROVIDERS: Family Medicine
DX: Z01.89 Encounter for other specified special examinations (principal)

== ENCOUNTER → 2021-10-06 | Outpatient (CLI) | payer MEDICARE, MEDICAID ==
[2021-10-06 16:55] LABS: COLLECTION METHOD CLEAN CATCH
[2021-10-06 17:00] LABS: MUCOUS Present (NOT PRESENT); PH 5 (5-8); SQUAMOUS EPITHELIAL 0-2 /hpf (0-10); URINE APPEARANCE Hazy (CLEAR/HAZY); URINE BACTERIA Rare /hpf (NONE SEEN); URINE BILIRUBIN Negative (NEGATIVE); URINE BLOOD 1+ (NEGATIVE); URINE COLOR Yellow (YELLOW); URINE GLUCOSE Negative (NEGATIVE); URINE KETONE Negative (NEGATIVE); URINE LEUKOCYTE ESTERASE Trace (NEGATIVE); URINE NITRATE Positive (NEGATIVE); URINE PROTEIN(semi-quant) Negative (NEGATIVE); URINE RBC 0-2 /hpf (0-2); URINE UROBILINOGEN Negative (NEGATIVE)
== END ==
LOC: ZCOL.LAB 16:20
PROVIDERS: Family Medicine
DX: N39.0 Urinary tract infection, site not specified (principal)

== ENCOUNTER → 2022-01-01 | Outpatient (CLI) | payer OTHER ==
[2022-01-01 14:53] LABS: COLLECTION METHOD CLEAN CATCH
[2022-01-01 15:16] LABS: MUCOUS Present (NOT PRESENT); PH 5 (5-8); URINE APPEARANCE Hazy (CLEAR/HAZY); URINE BACTERIA Rare /hpf (NONE SEEN); URINE BILIRUBIN Negative (NEGATIVE); URINE BLOOD Negative (NEGATIVE); URINE COLOR Amber (YELLOW); URINE GLUCOSE Negative (NEGATIVE); URINE KETONE Trace (NEGATIVE); URINE LEUKOCYTE ESTERASE Negative (NEGATIVE); URINE NITRATE Negative (NEGATIVE); URINE PROTEIN(semi-quant) Negative (NEGATIVE); URINE RBC 0-2 /hpf (0-2); URINE UROBILINOGEN Negative (NEGATIVE); URINE WBC 0-2 /hpf (0-2)
== END ==
LOC: ZCOL.LAB 13:36
PROVIDERS: Family Medicine
DX: N39.0 Urinary tract infection, site not specified (principal)

== ENCOUNTER → 2022-01-19 | Outpatient (CLI) | payer MEDICARE ==
[2022-01-19 09:23] LABS: BASO # 0.1 K/mm3 (0.0-0.2); EOS # 0.4 K/mm3 (0.0-0.7); EOS % 4.7 % (0.0-4.0); GRAN # 4.7 K/mm3 (1.4-6.5); GRAN % 58.1 % (42.2-75.2); HEMATOCRIT 38.8 % (37.0-47.0); HEMOGLOBIN 12.2 g/dl (12.5-16.0); LYMPH # 2.3 K/mm3 (1.2-3.4); LYMPH % 28.5 % (20.0-51.0); MEAN CELL VOLUME 88 fl (80.0-100.0); MEAN CORPUSCULAR HEMOGLOBIN 28 pg (27-31); MEAN CORPUSCULAR HGB CONC 31 g/dl (33.0-37.0); MONO # 0.6 K/mm3 (0.1-0.6); MONO % 7.3 % (1.7-9.3); PLATELET COUNT 239 K/mm3 (130-400); RED BLOOD COUNT 4.41 M/mm3 (4.10-5.30); REDCELL DISTRIBUTION WIDTH-CV 13.7 % (11.5-14.5)
[2022-01-19 09:34] LABS: ALBUMIN 3.8 gm/dL (3.4-4.8); BILIRUBIN,TOTAL 0.3 mg/dL (0.2-1.2); CALCIUM 9.5 mg/dL (8.4-10.2); CREATININE, serum 1.26 mg/dL (0.57-1.11); MAGNESIUM 2.1 mg/dL (1.6-2.6); POTASSIUM 4.8 mmol/L (3.5-4.5); TOTAL PROTEIN 7.2 gm/dL (6.2-8.1)
[2022-01-19 12:30] LABS: CHOLESTEROL RISK RATIO 5.8
== END ==
LOC: ZCOL.LAB 08:32
PROVIDERS: Family Medicine
DX: E78.5 Hyperlipidemia, unspecified (principal); E61.2 Magnesium deficiency; M81.0 Age-related osteoporosis without current pathological fracture; R73.09 Other abnormal glucose; R68.89 Other general symptoms and signs